=== PATIENT | male | born 1950 | race Caucasian/White ===

== ENCOUNTER → 2016-06-10 | Outpatient (CLI) | payer MEDICARE, OTHER ==
--- NOTE | ~2016-06-10 | US13 ---
[facility] A Service of [facility] RADIOLOGY TEXT RESULTS PATIENT: MELVIN STONER LOCATION: [place] : 50 UNIT #: [id number] AGE: [address]: MARCO ANTONIO PENA MD SEX: M ORDER DR: [id number] [address] [address] [id number] MR#: [id number] Acc #: [id number] NAME: MELVIN STONER : 1950 SEX: M STUDY DATE/TIME: 06/10/2016 8:30 UNIT: [facility] ROOM: STUDY DESCRIPTION: US Aorta Limited Attending Physician: Caroline Pena M.D. Referring Physician: Caroline Pena M.D. Ordering Physician: Caroline Pena M.D. Primary Care Physician: Caroline Pena M.D. MEDICAL IMAGING REPORT This report is preliminary unless electronic signature is present. EXAM Abdominal aortic ultrasound, 06/10/2016 HISTORY Screening for aortic aneurysm FINDINGS B-mode imaging and color Doppler imaging of the infrarenal aorta and proximal iliac arteries was performed showing widely patent vessels throughout with a proximal infrarenal aortic velocity of 76 cm/sec. The proximal infrarenal aorta is 2.0 cm, mid aorta 1.5 cm and distal aorta 1.5 cm. The right common iliac artery is 7.0 mm and the left common iliac artery is 7.0 mm. IMPRESSION No evidence of infrarenal abdominal aortic aneurysm or right or left common iliac artery aneurysm. Dictated by... Guerda Martins M.D. THIS IS AN ELECTRONICALLY VERIFIED REPORT Guerda Martins M.D. at 06/11/2016 7:23 AM Amanda TD: 06/10/2016 13:07 JOB #: [id number] MEDICAL IMAGING REPORT Page 1 of 1
== END | disposition home or self-care (01) ==
LOC: SGUS 07:55
DX: Z13.6 Encounter for screening for cardiovascular disorders (principal)
CPT/HCPCS: 76775; 76776